=== PATIENT | male | born 1955 | race Caucasian/White ===

== ENCOUNTER → 2024-10-31 | Outpatient (CLI) | payer MEDICARE, MEDICAID, SELFPAY ==
--- NOTE | 2024-10-31 08:18 | EKG_ITS ---
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
[2024-10-31 10:01] LABS: Glucose,Fasting 139 mg/dL (74-106)
== END | disposition home or self-care (01) ==
PROVIDERS: PCP Physician Assistant; Referring Provider Ophthalmology; Visit Provider Student in an Organized Health Care Education/Training Program
DX: Z01.818 Encounter for other preprocedural examination (principal); H25.812 Combined forms of age-related cataract, left eye
CPT/HCPCS: 36415; 82947; 93005

== ENCOUNTER 2025-06-28 06:40 | Day surgery (SDC) | payer MEDICARE, MEDICAID, SELFPAY ==
[2025-06-28] VITALS (10 sets, daily range): BP systolic 129–152; BP diastolic 81–94; PULSE 63–74; RESP 12–20; TEMP 36.6–36.7; O2SAT 97–100; BMI 25.9
[2025-06-28] MEDS: SODIUM CHLORIDE 0.9% 500 ML 500 ML 20 ML IV (07:23)
[2025-06-28] MEDS: fentaNYL CIT INJ 50 mCg/ML AMP 2ML (ASD USE ONLY) IVP (07:23)
[2025-06-28] MEDS: MIDAZOLAM INJ 1 MG/ML VIAL 2 ML (ASD USE ONLY) 2 MG IVP (07:23)
== END 2025-06-28 08:25 | disposition home or self-care (01) ==
PROVIDERS: PCP Physician Assistant; Referring Provider Surgery; Visit Provider Surgery
PROC: 0DBE8ZX Excision of Large Intestine, Via Natural or Artificial Opening Endoscopic, Diagnostic (ICD-10-PCS; CPT 45380; principal; 2025-06-28 08:00)
DX: Z12.11 Encounter for screening for malignant neoplasm of colon (principal); Z86.0100 Personal history of colon polyps, unspecified; K62.89 Other specified diseases of anus and rectum; D12.3 Benign neoplasm of transverse colon; D12.4 Benign neoplasm of descending colon; K64.1 Second degree hemorrhoids; K57.30 Diverticulosis of large intestine without perforation or abscess without bleeding; E11.9 Type 2 diabetes mellitus without complications; Z79.84 Long term (current) use of oral hypoglycemic drugs
CPT/HCPCS: 45385; A4649; J1200; J2250; J3010; J7999